=== PATIENT | male | born 1980 | race Native Hawaiian/Other Pacific Islander ===

== ENCOUNTER 2016-11-26 23:49 | Emergency (ER) | payer BC ==
[~2016-11-26] VITALS: Ht 182.9 cm; Wt 95.3 kg
[2016-11-27 00:30] LABS: PLATELET COUNT 322 K/uL (142-355)
[2016-11-27 00:40] LABS: SODIUM 139 mmol/L (136-145)
[2016-11-27 02:27] VITALS: BP 125/68; TEMP 98.9
== END 2016-11-27 02:33 | disposition home or self-care (01) ==
LOC: ED 23:49
DX: N20.1 Calculus of ureter (principal); N23 Unspecified renal colic
CPT/HCPCS: 36415; 80048; 81000; 85027; 96360; 96367; 96374; 99284; J1170; J1885; J2550